=== PATIENT | female | born 1960 | race Caucasian/White ===

== ENCOUNTER → 2017-09-24 | Outpatient (CLI) | payer OTHER ==
[~2017-09-24] MED LIST: ALBU8.5H IH; ASPI-757 PO; FEXO-72 PO; HYDR-2966 PO; IBUP-1687 PO; LEVO100T95 PO; LEVO137T23 PO; LEVO50TA80 PO; LISI-362 PO; METH4TAB66 PO; NAPR220C12 PO
== END ==
LOC: LAB 16:27
PROVIDERS: ATTEND Internal Medicine Endocrinology, Diabetes & Metabolism
DX: E89.0 Postprocedural hypothyroidism (principal)
CPT/HCPCS: 36415; 84439; 84443

== ENCOUNTER → 2018-09-25 | Outpatient (CLI) | payer OTHER ==
[~2018-09-25] MED LIST changes: +AMLO-125 PO; +DICL100G39 TOP; +LEVO150T78 PO; +LOSA100T75 PO; +LOSA25TA57 PO; +LOSA50TA80 PO; +SULF-198 PO
== END ==
LOC: LAB 08:36
PROVIDERS: ATTEND Emergency Medicine
DX: I10 Essential (primary) hypertension (principal); E89.0 Postprocedural hypothyroidism
CPT/HCPCS: 36415; 82310; 82374; 82435; 82565; 82947; 84132; 84295; 84436; 84443; 84520; 86800